=== PATIENT | male | born 1945 | race Caucasian/White ===

== ENCOUNTER → 2017-10-10 | Outpatient (CLI) | payer OTHER ==
[~2017-10-10] MED LIST: AMLO5 PO; ASPI81CH PO; Benefiber98 GM PO; Chewable-Vite1 EAC1 PO; LISI10; LISI20 PO; Lutein 15 MG S1 EACH PO; NAPR220 PO; PARO20 PO; PRAV20 PO; TAMS.4ER PO; TERB250 PO; TRIHYD253B PO; WARF5 PO; WARF7.5 PO
== END ==
LOC: PLD 13:29 → LAB SHORT 13:29
DX: D22.5 Melanocytic nevi of trunk (principal)
CPT/HCPCS: 88305

== ENCOUNTER 2018-08-02 08:43 | Emergency (ER) | payer OTHER ==
[~2018-08-02] VITALS: Ht 182.9 cm; Wt 72.6 kg
[2018-08-02 09:16] LABS: BASOPHILS ABSOLUTE AUTO 0.05 K/mm3 (0.00-0.23); BASOPHILS PERCENT AUTO 1 % (0-2); EOSINOPHILS ABSOLUTE AUTO 0.04 K/mm3 (0.00-0.68); EOSINOPHILS PERCENT AUTO 1 % (0-6); Hematocrit 44.5 % (37.0-53.0); Hemoglobin 15.2 g/dL (13.5-17.5); IMMATURE GRAN ABSOLUTE AUTO 0.01 K/mm3 (0.00-0.10); IMMATURE GRAN PERCENT AUTO 0 % (0-1); LYMPHOCYTES ABSOLUTE AUTO 0.61 K/mm3 (0.84-5.20); LYMPHOCYTES PERCENT AUTO 16 % (21-46); MONOCYTES ABSOLUTE AUTO 0.31 K/mm3 (0.16-1.47); MONOCYTES PERCENT AUTO 8 % (4-13); Mean Corpuscular HGB 32.5 pg (26.0-34.0); Mean Corpuscular HGB Conc 34.2 g/dL (31.5-36.5); Mean Corpuscular Volume 95 fL (80-100); Mean Platelet Volume 10.7 fL (9.1-12.4); NEUTROPHILS ABSOLUTE AUTO 2.88 K/mm3 (1.96-9.15); NEUTROPHILS PERCENT AUTO 74 % (41-73); Platelet Count 170 K/mm3 (150-400); RDW Coefficient Variation 12.5 % (11.7-14.2); RDW Standard Deviation 43.9 fL (35.1-46.3); Red Blood Cell Count 4.68 M/mm3 (4.30-5.90)
[2018-08-02 09:34] LABS: International Normalized Ratio 1.09; Prothrombin Time Results 11.5 Sec (9.7-11.5)
[2018-08-02 09:39] LABS: Alanine Aminotransfer (ALT/SGP 45 U/L (12-78); Albumin, Blood 3.8 g/dL (3.4-5.0); Albumin/Globulin Ratio 1.5 (0.8-1.8); Alk Phos 91 U/L (50-136); Anion Gap 8 mmol/L (6-16); Aspartate Aminotrans (AST/SGOT 38 U/L (12-37); Bilirubin, Total 1.2 mg/dL (0.1-1.0); Blood Urea Nitrogen 12 mg/dL (8-24); CO2, Blood 26 mmol/L (21-32); Calcium, Blood 8.1 mg/dL (8.5-10.1); Chloride, Blood 103 mmol/L (98-108); Creatinine, Blood 0.67 mg/dL (0.60-1.20); Globulin, Blood 2.6 g/dL (2.2-4.0); Glomerular Filtration Rate >60 (60-); Glucose, Blood 188 mg/dL (70-99); Sodium, Blood 137 mmol/L (136-145); Total Protein, Blood 6.4 g/dL (6.4-8.2)
== END 2018-08-02 11:53 | disposition home or self-care (01) ==
LOC: ER 08:43
PROVIDERS: Emergency Medicine
DX: R55 Syncope and collapse (principal); Z91.048 Other nonmedicinal substance allergy status; Z79.899 Other long term (current) drug therapy; Z79.01 Long term (current) use of anticoagulants; Z86.73 Personal history of transient ischemic attack (TIA), and cerebral infarction without residual deficits
CPT/HCPCS: 36415; 70450; 80053; 85025; 85610; 85730; 93005; 93010; 99284-25

== ENCOUNTER → 2019-04-21 | Outpatient (CLI) | payer OTHER ==
[2019-04-21 12:51] LABS: Alanine Aminotransfer (ALT/SGP 38 U/L (12-78); Albumin, Blood 4.5 g/dL (3.4-5.0); Albumin/Globulin Ratio 1.3 (0.8-1.8); Alk Phos 124 U/L (40-126); Anion Gap 9 mmol/L (6-16); Aspartate Aminotrans (AST/SGOT 34 U/L (12-37); Bilirubin, Total 0.8 mg/dL (0.1-1.0); Blood Urea Nitrogen 21 mg/dL (8-24); Bun/Creatinine Ratio 28.8 (12.0-20.0); CO2, Blood 27 mmol/L (21-32); Calcium, Blood 9.2 mg/dL (8.5-10.1); Chloride, Blood 103 mmol/L (98-108); Creatinine, Blood 0.73 mg/dL (0.60-1.20); Globulin, Blood 3.4 g/dL (2.2-4.0); Glomerular Filtration Rate >60 (60-); Glucose, Blood 103 mg/dL (70-99); Potassium, Blood 4.2 mmol/L (3.5-5.5); Sodium, Blood 139 mmol/L (136-145); Total Protein, Blood 7.9 g/dL (6.4-8.2)
[2019-04-21 12:52] LABS: Troponin I <0.017 ng/mL (0.000-0.040)
[2019-04-21 15:33] LABS: BASOPHILS ABSOLUTE AUTO 0.05 K/mm3 (0.00-0.23); BASOPHILS PERCENT AUTO 1 % (0-2); EOSINOPHILS ABSOLUTE AUTO 0.07 K/mm3 (0.00-0.68); EOSINOPHILS PERCENT AUTO 1 % (0-6); Hemoglobin 16.1 g/dL (13.5-17.5); IMMATURE GRAN ABSOLUTE AUTO 0.01 K/mm3 (0.00-0.10); IMMATURE GRAN PERCENT AUTO 0 % (0-1); LYMPHOCYTES ABSOLUTE AUTO 0.63 K/mm3 (0.84-5.20); LYMPHOCYTES PERCENT AUTO 13 % (21-46); MONOCYTES ABSOLUTE AUTO 0.56 K/mm3 (0.16-1.47); MONOCYTES PERCENT AUTO 11 % (4-13); Mean Corpuscular HGB 32.1 pg (26.0-34.0); Mean Corpuscular HGB Conc 34.3 g/dL (31.5-36.5); Mean Corpuscular Volume 94 fL (80-100); Mean Platelet Volume 10.1 fL (9.1-12.4); NEUTROPHILS ABSOLUTE AUTO 3.67 K/mm3 (1.96-9.15); NEUTROPHILS PERCENT AUTO 74 % (41-73); Platelet Count 213 K/mm3 (150-400); RDW Coefficient Variation 13.1 % (11.7-14.2); RDW Standard Deviation 44.5 fL (35.1-46.3); Red Blood Cell Count 5.01 M/mm3 (4.30-5.90); White Blood Cell Count 4.99 K/mm3 (4.00-11.30)
[2019-04-21 17:42] LABS: International Normalized Ratio 3.46; Prothrombin Time Results 32.8 Sec (9.7-11.5)
== END ==
LOC: LAB EV 12:31 → LAB SHORT 12:31
PROVIDERS: Physician Assistant
DX: R07.9 Chest pain, unspecified (principal)
CPT/HCPCS: 80053; 84484; 85025; 85610

== ENCOUNTER 2019-06-17 15:34 | Emergency (ER) | payer OTHER ==
[~2019-06-17] VITALS: Ht 182.9 cm; Wt 74.8 kg
== END 2019-06-17 16:12 | disposition home or self-care (01) ==
LOC: ER 15:34
DX: R55 Syncope and collapse (principal); Z91.048 Other nonmedicinal substance allergy status; Z79.899 Other long term (current) drug therapy; Z79.01 Long term (current) use of anticoagulants; Z86.73 Personal history of transient ischemic attack (TIA), and cerebral infarction without residual deficits
CPT/HCPCS: 82947; 93005; 93010; 94060; 94726; 94729; 99284-25

== ENCOUNTER → 2020-01-29 | Outpatient (CLI) | payer OTHER ==
[2020-01-29 10:12] LABS: Anion Gap 5 mmol/L (6-16); Blood Urea Nitrogen 10 mg/dL (8-24); Bun/Creatinine Ratio 15.4 (12.0-20.0); CO2, Blood 27 mmol/L (21-32); Calcium, Blood 8.8 mg/dL (8.5-10.1); Chloride, Blood 104 mmol/L (98-108); Cholesterol 172 mg/dL (50-200); Creatinine, Blood 0.65 mg/dL (0.60-1.20); Glomerular Filtration Rate >60 (60-); Glucose, Blood 128 mg/dL (70-99); Phosphorus, Blood 2.1 mg/dL (2.5-4.9); Potassium, Blood 3.7 mmol/L (3.5-5.5); Sodium, Blood 136 mmol/L (136-145)
[2020-01-29 10:15] LABS: CHOL/HDL RATIO 2.7; HDL Cholesterol 63 mg/dL (>39); LDL/HDL RATIO 1.5; Low Density Lipoprotein Chol 96 mg/dL (0-110); Triglycerides 63 mg/dL (30-160); Very Low Density Lipoprot Chol 12 mg/dL (6-32)
== END | disposition home or self-care (01) ==
LOC: LAB SHORT 07:08 → OLS 07:08
PROVIDERS: Physician Assistant
DX: E78.5 Hyperlipidemia, unspecified (principal); E83.51 Hypocalcemia
CPT/HCPCS: 36415; 80061; 80069

== ENCOUNTER 2024-03-03 10:43 | Emergency (ER) | payer OTHER ==
[~2024-03-03] VITALS: Ht 182.9 cm; Wt 72.6 kg
[2024-03-03] MEDS ORDERED: OxyCODONE HCL 5 MG TAB PO ONE (11:55)
[2024-03-03] MEDS ORDERED: OXYC5 PO (12:48)
[2024-03-03] MEDS ORDERED: SENN187 PO (12:48)
[2024-03-03 13:09] VITALS: BP 119/69
== END 2024-03-03 13:03 | disposition home or self-care (01) ==
LOC: ER 10:43
DX: S70.02XA Contusion of left hip, initial encounter (principal); R55 Syncope and collapse; R53.1 Weakness; K59.00 Constipation, unspecified; E78.5 Hyperlipidemia, unspecified; I10 Essential (primary) hypertension; W11.XXXA Fall on and from ladder, initial encounter; Z87.891 Personal history of nicotine dependence; Z86.73 Personal history of transient ischemic attack (TIA), and cerebral infarction without residual deficits; Z79.01 Long term (current) use of anticoagulants; Z79.899 Other long term (current) drug therapy; Z88.8 Allergy status to other drugs, medicaments and biological substances
CPT/HCPCS: 72192; 73502; 99284-25; A9270

== ENCOUNTER 2024-07-03 17:15 | Inpatient (IN) | payer OTHER ==
[~2024-07-03] VITALS: Ht 170.2 cm; Wt 74.7 kg
[~2024-07-03 17:15] MED LIST changes: +OXYC5 PO; +SENN187 PO
[2024-07-03] MEDS ORDERED: Ondansetron HCl 2 MG / ML 2ML Vial IV ONE (17:45)
[2024-07-03 18:07] LABS: BASOPHILS ABSOLUTE AUTO 0.07 K/mm3 (0.00-0.23); BASOPHILS PERCENT AUTO 1 % (0-2); EOSINOPHILS ABSOLUTE AUTO 0.09 K/mm3 (0.00-0.68); EOSINOPHILS PERCENT AUTO 2 % (0-6); Hematocrit 45.8 % (37.0-53.0); Hemoglobin 16.2 g/dL (13.5-17.5); IMMATURE GRAN ABSOLUTE AUTO 0.02 K/mm3 (0.00-0.10); IMMATURE GRAN PERCENT AUTO 0 % (0-1); LYMPHOCYTES PERCENT AUTO 18 % (21-46); MONOCYTES ABSOLUTE AUTO 0.58 K/mm3 (0.16-1.47); MONOCYTES PERCENT AUTO 9 % (4-13); Mean Corpuscular HGB 32.4 pg (26.0-34.0); Mean Corpuscular HGB Conc 35.4 g/dL (31.5-36.5); Mean Corpuscular Volume 92 fL (80-100); Mean Platelet Volume 10.3 fL (9.1-12.4); NEUTROPHILS ABSOLUTE AUTO 4.34 K/mm3 (1.96-9.15); NEUTROPHILS PERCENT AUTO 70 % (41-73); Platelet Count 161 K/mm3 (150-400); RDW Coefficient Variation 12.6 % (11.7-14.2); RDW Standard Deviation 42.5 fL (35.1-46.3)
[2024-07-03 18:27] LABS: Albumin, Blood 3.7 g/dL (3.4-5.0); Albumin/Globulin Ratio 0.9 (0.8-1.8); Bun/Creatinine Ratio 17.2 (12.0-20.0); Calcium, Blood 8.9 mg/dL (8.5-10.1); Creatinine, Blood 0.7 mg/dL (0.60-1.20); Potassium, Blood 4.8 mmol/L (3.5-5.5); Total Protein, Blood 7.7 g/dL (6.4-8.2)
[2024-07-03 19:51] LABS: Prothrombin Time Results 10.7 Sec (9.7-11.5)
[2024-07-03 19:54] LABS: Magnesium, Blood 2.5 mg/dL (1.6-2.4); Phosphorus, Blood 3.5 mg/dL (2.5-4.9); Thyroid Stimulating Hormone 5.8 uIU/mL (0.360-4.800)
[2024-07-03] MEDS ORDERED: ELIQUIS5 M2 PO (21:29)
[2024-07-03] MEDS ORDERED: Ondansetron HCl 2 MG / ML 2ML Vial IV PRN (21:30)
[2024-07-03] MEDS ORDERED: FLU VACC TS2024-25(6MOS UP)/PF 45 MCG/0.5 ML SYRINGE IM SCH (21:30)
[2024-07-03] MEDS ORDERED: NS 1,000 ML IV SCH (21:30)
[2024-07-03] MEDS ORDERED: NS 1,000 ML IV ONE (21:35)
[2024-07-03 21:42] LABS: Free Thyroxine 0.9 ng/dL (0.70-1.60)
[2024-07-03 22:55] VITALS: BP 132/78
[2024-07-04 04:21] VITALS: BP 117/84
--- NOTE | 2024-07-04 05:01 | NUR ---
SHIFT SUMMARY; AFTER ADMIT, PATIENT WAS ABLE TO SLEEP IN LONG INTERVALS, UP TO BR TO VOID,USINBG WALKER, DID NOT HAVE SYNCOPAL EPISODE, NO CP. ONLY ABLE TO VOID SMALL UNMEASURED VOID X 1. TELE SR @ 73 WITH 1ST DEGREE BLOCK. NS/100HR.
[2024-07-04] MEDS ORDERED: Tamsulosin HCl 0.4 MG Cap PO SCH (09:00)
[2024-07-04 12:18] VITALS: BP 127/75
--- NOTE | 2024-07-04 15:13 | NUR ---
FAMILY HELPFUL AT BEDISDE, POSSIBLE PACER PLACEMENT TOMORROW, TO BE NPO AT MIDNIGHT, DR EL SPOKE WITH PATIENT AND FAMILY, CALL LIGHT WITH IN REACH
[2024-07-04 16:03] VITALS: BP 142/86
[2024-07-04 16:06] VITALS: BP 128/81
[2024-07-04] MEDS ORDERED: Pravastatin Sodium 20 MG Tab PO SCH (18:00)
--- NOTE | 2024-07-04 18:16 | NUR ---
NO ACUTE CHANGES, NPO AT MIDNIGHT FOR POSSIBLE PACERMAKER PLACEMENT, SYNCOPAL EPISODES ARE FLUSHED DIZZY AND FAINTING. FAMILY HELPFUL AT BEDSIDE, NO TELEMETRY EVENTS, CALL LIGHT WITH IN REACH, WILL RELAY TO PM RN
[2024-07-04 19:24] VITALS: BP 105/73
[2024-07-05] VITALS (12 sets, daily range): BP systolic 105–149; BP diastolic 47–115
--- NOTE | 2024-07-05 01:36 | NUR ---
PRODUCTION CONTROL SPECIALIST NOTIFICATION CALL FROM [employer] AT 0135 AM; CHARLES REPORTED HE WAS REVIEWING THE PT ALARMS AND FOUND AT SHIFT CHANGE APROX 1900 PT HAD A 5 SECOND PAUSE. PER TECH, THE PT HAS NOT HAD ANY ADDITIONAL PAUSES. AVERAGE HR IN THE 70'S WITH OCCASSIONAL INCREASE TO LOW 100'S.
--- NOTE | 2024-07-05 04:50 | NUR ---
PINION STAKER SUMMARY PT A/OX3. CALLS APPROPRIATELY. ABLE TO MAKE NEEDS KNOWN. PT ON TELE T/O THE NIGHT--SEE PREVIOUS NURSE NOTE REGARDING 5 SECOND PAUSE. PT HAS DENIED DIZZINESS. STAFF ASSIST EVERY TIME PT IS OOB TO THE BATHROOM. BED ALARM IN PLACE. PT NPO AT MIDNIGHT. CALL LIGHT IS ACCESSIBLE. REGULAR INTERVAL ROUNDING COMPLETE. CARE WILL CONTINUE UNTIL REPORT IS GIVEN TO ONCOMING NURSE.
[2024-07-05 05:29] LABS: BASOPHILS ABSOLUTE AUTO 0.06 K/mm3 (0.00-0.23); BASOPHILS PERCENT AUTO 1 % (0-2); EOSINOPHILS ABSOLUTE AUTO 0.12 K/mm3 (0.00-0.68); EOSINOPHILS PERCENT AUTO 2 % (0-6); Hematocrit 41.9 % (37.0-53.0); Hemoglobin 14.7 g/dL (13.5-17.5); IMMATURE GRAN ABSOLUTE AUTO 0.02 K/mm3 (0.00-0.10); IMMATURE GRAN PERCENT AUTO 0 % (0-1); LYMPHOCYTES ABSOLUTE AUTO 0.95 K/mm3 (0.84-5.20); LYMPHOCYTES PERCENT AUTO 13 % (21-46); MONOCYTES ABSOLUTE AUTO 0.61 K/mm3 (0.16-1.47); MONOCYTES PERCENT AUTO 8 % (4-13); Mean Corpuscular HGB 32.4 pg (26.0-34.0); Mean Corpuscular HGB Conc 35.1 g/dL (31.5-36.5); Mean Corpuscular Volume 92 fL (80-100); Mean Platelet Volume 10.9 fL (9.1-12.4); NEUTROPHILS ABSOLUTE AUTO 5.56 K/mm3 (1.96-9.15); NEUTROPHILS PERCENT AUTO 76 % (41-73); Platelet Count 174 K/mm3 (150-400); RDW Coefficient Variation 12.9 % (11.7-14.2); RDW Standard Deviation 43.7 fL (35.1-46.3); Red Blood Cell Count 4.54 M/mm3 (4.30-5.90); White Blood Cell Count 7.32 K/mm3 (4.00-11.30)
[2024-07-05 06:06] LABS: Albumin, Blood 3.3 g/dL (3.4-5.0); Bilirubin, Total 1.1 mg/dL (0.1-1.0); Bun/Creatinine Ratio 16.9 (12.0-20.0); Calcium, Blood 8.6 mg/dL (8.5-10.1); Creatinine, Blood 0.59 mg/dL (0.60-1.20); Globulin, Blood 3.2 g/dL (2.2-4.0); Potassium, Blood 3.8 mmol/L (3.5-5.5); Total Protein, Blood 6.5 g/dL (6.4-8.2)
[2024-07-05] MEDS ORDERED: NS 1,000 ML IV SCH (09:20)
[2024-07-05] MEDS ORDERED: CeFAZolin Sodium 2,000 MG in NS 100 ML IV SCH ×2 (09:25→20:00)
[2024-07-05] MEDS ORDERED: CeFAZolin Sodium 1000 mg Vial ONE (11:01)
[2024-07-05] MEDS ORDERED: NS 1,000 ML IV ONE (11:02)
[2024-07-05] MEDS ORDERED: Heparin Sodium 1000 Units/ML 10ML MDV ONE (11:02)
[2024-07-05] MEDS ORDERED: Bupivacaine 0.5% HCl 5 MG/ML 30MLVIAL ONE (11:08)
[2024-07-05] MEDS ORDERED: NS 500 ML IV ONE (11:35)
[2024-07-05] MEDS ORDERED: FentaNYL Citrate 50 MCG/ML 2 ML Injection ONE ×2 (11:35→12:06)
[2024-07-05] MEDS ORDERED: Midazolam HCl 1MG / ML 2ML Vial ONE ×2 (11:35→12:05)
[2024-07-05] MEDS ORDERED: CeFAZolin Sodium 2,000 MG VIAL ONE (11:41)
[2024-07-05] MEDS ORDERED: NS 50 ML IV ONE (11:42)
--- NOTE | 2024-07-05 12:19 | NUR ---
PATIENT TO SANDEEP AT 1100, REPORT TO WATER ATTENDANT, FAMILY ACCOMPANYING PATIENT
[2024-07-05] MEDS ORDERED: Acetaminophen 500 MG Tab PO PRN (13:25)
[2024-07-05] MEDS ORDERED: OxyCODONE 5 mg/Acetamin 325 mg TABLET PO PRN (13:25)
--- NOTE | 2024-07-05 14:40 | NUR ---
PT TX'D TO PCU 11 POST PACEMAKER PLACEMENT. HE WAS IN ROOM 357 AND REPORT WAS RECIEVED FROM THE MEDICAL FLOOR NURSE. THE PT ARRIVED IN A LEFT ARM IMMOBILIZER. HE HAS LEFT CHEST WALL DERMABOND CLOSING WOUND SITE POST PACEMAKER. ORDERS TO LEAVE OPEN TO AIR AND PLACE AND ICE PACK ON FOR 12 HRS. ICE PACK WAS PLACED. SITE DRY AND WITHOUT BLEEDING OR HEMATOMA. THE PT DENIES ANY PAIN. ON TELE HE IS SR 70'S, BP STABLE, AND SP02 >94% ON RA, DENIES SOB. LUNGS CLEAR T/O. FAMILY AT BEDSIDE AND UPDATED ON CARE. THE PT DENIES ANY ANGINA OR CHEST PRESSURE. SEE NOTES FOR UPDATES.
--- NOTE | 2024-07-05 17:24 | NUR ---
DR. ESPARZA TO BEDSIDE TALKING WITH THE PT AND FAMILY. NO NEW ORDERS.
[2024-07-06 00:08] VITALS: BP 149/92
[2024-07-06 03:19] VITALS: BP 146/91
--- NOTE | 2024-07-06 04:23 | NUR ---
SHIFT SUMMARY PT HAD AN OVERALL UNEVENTFUL NIGHT. SR ON TELE IN 80'S-90'S. LEFT ARM IMMOBILIZED OVERNIGHT PER MD ORDER POST PPM PLACEMENT 07/05. NO ACUTE EVENTS THIS SHIFT. VITALLY STABLE.
[2024-07-06 04:57] LABS: BASOPHILS ABSOLUTE AUTO 0.06 K/mm3 (0.00-0.23); BASOPHILS PERCENT AUTO 1 % (0-2); EOSINOPHILS ABSOLUTE AUTO 0.17 K/mm3 (0.00-0.68); EOSINOPHILS PERCENT AUTO 2 % (0-6); Hematocrit 43.6 % (37.0-53.0); Hemoglobin 15.3 g/dL (13.5-17.5); IMMATURE GRAN ABSOLUTE AUTO 0.03 K/mm3 (0.00-0.10); IMMATURE GRAN PERCENT AUTO 0 % (0-1); LYMPHOCYTES ABSOLUTE AUTO 0.79 K/mm3 (0.84-5.20); LYMPHOCYTES PERCENT AUTO 11 % (21-46); MONOCYTES ABSOLUTE AUTO 0.73 K/mm3 (0.16-1.47); MONOCYTES PERCENT AUTO 10 % (4-13); Mean Corpuscular HGB 32.6 pg (26.0-34.0); Mean Corpuscular HGB Conc 35.1 g/dL (31.5-36.5); Mean Corpuscular Volume 93 fL (80-100); Mean Platelet Volume 11.4 fL (9.1-12.4); NEUTROPHILS ABSOLUTE AUTO 5.73 K/mm3 (1.96-9.15); NEUTROPHILS PERCENT AUTO 76 % (41-73); Platelet Count 142 K/mm3 (150-400); RDW Coefficient Variation 12.8 % (11.7-14.2); RDW Standard Deviation 43.7 fL (35.1-46.3); White Blood Cell Count 7.51 K/mm3 (4.00-11.30)
[2024-07-06 05:26] LABS: Bun/Creatinine Ratio 17.5 (12.0-20.0); Calcium, Blood 8.9 mg/dL (8.5-10.1); Creatinine, Blood 0.69 mg/dL (0.60-1.20)
[2024-07-06 08:18] VITALS: BP 132/119
[2024-07-06] MEDS ORDERED: Apixaban 5 MG Tab PO SCH (09:00)
[2024-07-06] MEDS ORDERED: AmLODIPine Besylate 5 MG Tab PO SCH (09:00)
[2024-07-06 10:33] VITALS: BP 159/103
--- NOTE | 2024-07-06 11:08 | NUR ---
D/C SUMMARY THE PT V/S REMAIN STABLE. PACEMAKER SITE W/ DERMABOND. SITE WITHOUT REDNESS OR HEMATOMA, BLEEDING. IV D/C'D. THE PT DENIES ANY PAIN. D/C INSTRUCTIONS GONE OVER WITH THE PT AND HIS FAMILY. NO FURTHER NOTES.
== END 2024-07-06 11:11 | disposition home or self-care (01) | DRG 244 ==
LOC: ER 17:15 → ERHOLD 17:16 → MEDS 17:16 → PCU 07-05 11:47
PROVIDERS: Emergency Medicine; Family Medicine; Internal Medicine Cardiovascular Disease; ADMIT Internal Medicine
PROC: 0JH606Z Insertion of Pacemaker, Dual Chamber into Chest Subcutaneous Tissue and Fascia, Open Approach (ICD-10-PCS; principal; 2024-07-05)
PROC: 02H63JZ Insertion of Pacemaker Lead into Right Atrium, Percutaneous Approach (ICD-10-PCS; 2024-07-05)
PROC: 02HK3JZ Insertion of Pacemaker Lead into Right Ventricle, Percutaneous Approach (ICD-10-PCS; 2024-07-05)
DX: I49.5 Sick sinus syndrome (principal); R55 Syncope and collapse; R00.1 Bradycardia, unspecified; E78.5 Hyperlipidemia, unspecified; I10 Essential (primary) hypertension; N40.0 Benign prostatic hyperplasia without lower urinary tract symptoms; I34.1 Nonrheumatic mitral (valve) prolapse; Z91.09 Other allergy status, other than to drugs and biological substances; Z79.899 Other long term (current) drug therapy; Z79.891 Long term (current) use of opiate analgesic; Z86.73 Personal history of transient ischemic attack (TIA), and cerebral infarction without residual deficits; Z98.890 Other specified postprocedural states; Z87.891 Personal history of nicotine dependence; Z79.01 Long term (current) use of anticoagulants
CPT/HCPCS: 33208; 36415; 70450; 71045; 71046; 80048; 80053; 83735; 83880; 84100; 84439; 84443; 84484; 85025; 85379; 85610; 85730; 93005; 93010; 93306; 96360; 96361; 99152; 99153; 99285-25; A9270; C1785; C1898; G0378; J0690; J1644; J2250; J3010; J7030; J7040; Q9967

== ENCOUNTER 2024-08-20 14:24 | Emergency (ER) | payer OTHER ==
[~2024-08-20] VITALS: Ht 182.9 cm; Wt 72.6 kg
[~2024-08-20 14:24] MED LIST changes: +ELIQUIS5 M2 PO
[2024-08-20 17:08] LABS: BASOPHILS ABSOLUTE AUTO 0.07 K/mm3 (0.00-0.23); BASOPHILS PERCENT AUTO 1 % (0-2); EOSINOPHILS ABSOLUTE AUTO 0.06 K/mm3 (0.00-0.68); EOSINOPHILS PERCENT AUTO 1 % (0-6); Hematocrit 45.1 % (37.0-53.0); IMMATURE GRAN ABSOLUTE AUTO 0.03 K/mm3 (0.00-0.10); IMMATURE GRAN PERCENT AUTO 0 % (0-1); LYMPHOCYTES ABSOLUTE AUTO 0.78 K/mm3 (0.84-5.20); LYMPHOCYTES PERCENT AUTO 11 % (21-46); MONOCYTES ABSOLUTE AUTO 0.61 K/mm3 (0.16-1.47); MONOCYTES PERCENT AUTO 8 % (4-13); Mean Corpuscular HGB 32.7 pg (26.0-34.0); Mean Corpuscular HGB Conc 35.5 g/dL (31.5-36.5); Mean Corpuscular Volume 92 fL (80-100); Mean Platelet Volume 9.7 fL (9.1-12.4); NEUTROPHILS ABSOLUTE AUTO 5.85 K/mm3 (1.96-9.15); NEUTROPHILS PERCENT AUTO 79 % (41-73); Platelet Count 171 K/mm3 (150-400); RDW Coefficient Variation 12.9 % (11.7-14.2); RDW Standard Deviation 43.8 fL (35.1-46.3); Red Blood Cell Count 4.89 M/mm3 (4.30-5.90)
[2024-08-20 18:07] LABS: Albumin, Blood 3.9 g/dL (3.4-5.0); Albumin/Globulin Ratio 1.1 (0.8-1.8); Bilirubin, Total 1.1 mg/dL (0.1-1.0); Bun/Creatinine Ratio 16.2 (12.0-20.0); Calcium, Blood 8.9 mg/dL (8.5-10.1); Creatinine, Blood 0.87 mg/dL (0.60-1.20); Globulin, Blood 3.7 g/dL (2.2-4.0); Potassium, Blood 3.6 mmol/L (3.5-5.5); Total Protein, Blood 7.6 g/dL (6.4-8.2)
[2024-08-20 18:54] VITALS: BP 127/84
[2024-08-20] MEDS ORDERED: Diphth,Pertuss(Acell),Tet Vac 0.5 ML VIAL IM ONE (19:45)
== END 2024-08-20 19:53 | disposition home or self-care (01) ==
LOC: ER 14:24
PROVIDERS: Physician Assistant
DX: S01.81XA Laceration without foreign body of other part of head, initial encounter (principal); W01.0XXA Fall on same level from slipping, tripping and stumbling without subsequent striking against object, initial encounter; R55 Syncope and collapse; I10 Essential (primary) hypertension; E78.5 Hyperlipidemia, unspecified; Z91.048 Other nonmedicinal substance allergy status; Z79.01 Long term (current) use of anticoagulants; Z79.899 Other long term (current) drug therapy; Z87.891 Personal history of nicotine dependence
CPT/HCPCS: 12013; 70450; 80053; 84484; 85025; 90471; 90715; 93005; 93010; 99284-25